=== PATIENT | male | born 1940 | race Two or more races ===

== ENCOUNTER → 2018-11-11 | Emergency (ER) | payer OTHER ==
[~2018-11-11] VITALS: Ht 167.6 cm; Wt 88.0 kg
[~2018-11-11] MED LIST: ALTACE2.5 MG; ASA81 MG; LIPITOR20 MG; TENORMIN25 MG; ZETIA10 MG
== END | disposition left against medical advice (07) ==
LOC: ER 09:25 → CPU-OBS 09:27 → ER 09:27
DX: R55 Syncope and collapse (principal); R07.89 Other chest pain